=== PATIENT | female | born 1975 | race Caucasian/White ===

== ENCOUNTER 2021-08-20 20:05 | Emergency (ER) | payer OTHER ==
[2021-08-20 20:11] VITALS: BP 109/67; PULSE 68; TEMP 100.1; BMI 18.8
[2021-08-20] MEDS ORDERED: morphine CARPU-JECT 2 MG/1 ML DISP.SYRIN IVPUSH ONE (20:22)
[2021-08-20] MEDS ORDERED: KETOROLAC TROMETHAMINE 30 MG/1 ML VIAL ONE (20:22)
[2021-08-20] MEDS ORDERED: KETOROLAC TROMETHAMINE 30 MG/1 ML VIAL IVPUSH ONE (20:22)
[2021-08-20] MEDS ORDERED: morphine SULFATE 4 MG/ML VIAL ONE (20:25)
[2021-08-20] MEDS ORDERED: ACETAMINOPHEN 500 MG TABLET (FP) PO ONE (20:32)
[2021-08-20] MEDS ORDERED: CEFAZOLIN 1 GM in DEXTROSE 5%-WATER - 50 ML IVPB ONE (20:32)
[2021-08-20] MEDS ORDERED: ceFAZolin SODIUM 1 GM VIAL ONE (20:34)
[2021-08-20] MEDS ORDERED: ACETAMINOPHEN INJECTION 100 ML IVPB ONE (20:34)
[2021-08-20] MEDS ORDERED: ACETAMINOPHEN 1000 MG/100 ML VIAL (NON FORMULARY) IVPB ONE (21:02)
== END 2021-08-20 21:20 | disposition home or self-care (01) ==
LOC: FER 20:05
PROC: 3E033GC Introduction of Other Therapeutic Substance into Peripheral Vein, Percutaneous Approach (ICD-10-PCS; principal; 2021-08-20)
DX: L02.31 Cutaneous abscess of buttock (principal)
CPT/HCPCS: 87070; 87186; 87205; 99284-25; J0131